=== PATIENT | female | born 1960 | race Caucasian/White ===

== ENCOUNTER 2016-04-07 12:25 | Emergency (ER) | payer OTHER ==
[2016-04-07 12:31] VITALS: BP 152/88
--- NOTE | 2016-04-07 13:08 | PROVIDER DOCUMENTATION ---
HPI-General Adult - General Chief Complaint: Animal Bite Stated Complaint: ANIMAL BITE Time Seen by Provider: 04/07/16 12:46 Source: patient Allergies/Adverse Reactions: Patient Allergies Allergy/AdvReac Type Severity Reaction Status Date / Time No Known Allergies Allergy Verified 04/07/16 12:31 - History of Present Illness -Gen Adult Nature of Presenting Problems: Pt. is 55 yof that presents with a dog bite to the left lower extremity. Pt. reports the dog was a stray that she has never seen before. Pt. reports her tetanus is not up to date and states that she is unsure if she wants the Rabies vaccination or not. Location of Pain/Injury: reports: lower extremity (left). denies: head, face, mouth, neck, chest, upper extremity, hand(s), abdomen, back, pelvis, genitalia, feet, upper body, lower body, generalized Pain Radiation: reports: no radiation Quality of Pain: reports: aching. denies: burning, cramping, dull, fullness, indigestion, pressure, sharp, stabbing, tearing, throbbing, tightness Severity: reports: moderate. denies: mild, severe Onset/Duration: reports: abrupt, just prior to arrival Timing: reports: still present. denies: improving, gone now, resolved prior to arrival, intermittent, constant, changing over time, getting worse Context/Activities at Onset: reports: light activity, recent trauma history. denies: recent emotional stress, recent physical stress, possible bad food, cold exposure, out of country travel Modifying Factors: improves with: nothing Associated Symptoms: denies: anxiety, arm pain, back/neck pain, chest pain, constipation, cough, diaphoresis, diarrhea, dizziness, EENT symptoms, fatigue, fever/chills, genitourinary problems, headaches, heartburn, joint pain, loss of appetite, malaise, muscle aches, sinus congestion/drainage, nausea, rash, seizure, shortness of breath, sensory/motor loss, pain with inspiration, swelling/mass in abdomen, syncope, vomiting, weakness, trouble walking Similar Symptoms Previously?: No Recently seen or treated by another doctor?: No Review of Systems - Adult - REVIEW OF SYSTEMS - ADULT Constitutional: reports: see HPI. denies: chills, fever, fatique Eyes: reports: see HPI. denies: discharge, blurred vision, eye pain Ears, Nose, Mouth & Throat: reports: see HPI. denies: ear discharge, hearing loss, nose pain, loose teeth, mouth/dental pain, throat swelling Cardiovascular: reports: see HPI. denies: chest pain, irregular heart rate, palpitations, syncope Respiratory: reports: see HPI. denies: chronic cough, cough, dyspnea on exertion, pleurisy, shortness of breath, wheezing Gastrointestinal: reports: see HPI. denies: abdominal pain, hematemesis, frequent heartburn, nausea, vomiting Genitourinary: reports: see HPI. denies: dysuria, hematuria, hesitency, urgency Musculoskeletal: reports: see HPI. denies: bone pain, back pain, joint pain, muscle aches, neck pain Integumentary: reports: see HPI, other (several open wounds from a dog bite). denies: hives, itching, rash, skin thickening Neurological: reports: see HPI. denies: ataxia, headache/migraines, numbness, seizure, tremors Psychiatric: reports: see HPI. denies: anxiety, depression, emotional problems , insomnia, panic attacks, suicidal thoughts Past History - Adult - PAST MEDICAL HISTORY-ADULT Review of Records: reports: Old Records Reviewed, Nursing Assessment Review, Medications Reviewed, Social history reviewed & non-contributory. Physical Exam-General - PHYSICAL EXAM-ADULT Initial Vital Signs Reviewed: Yes - CONSTITUTIONAL General Appearance: alert, mild distress. negative: anxious, lethargic, slow to respond, obtunded, combative - EYES Eyes: PERRL/EOMI, pink conjunctivae. negative: conjuctival exudate, photophobia , subconjunctival hemorrhage - HEAD, EARS, NOSE, MOUTH & THROAT HENMT: normocephalic/atraumatic, moist mucous membranes. negative: angioedema, frontal tenderness, maxillary tenderness - NECK Neck: non-tender, full range of motion, supple, normal inspection. negative: lymphadenopathy, trachial deviation, thyromegaly - RESPIRATORY Respiratory: lungs clear, normal breath sounds. negative: crackles, rales, rhonchi, stridor, wheezing - CARDIOVASCULAR Cardiovascular: normal peripheral pulses, regular rate, rhythm, no edema, no JVD , no murmur. negative: extra beats, friction rub, irregularly irregular - CHEST (BREASTS) Chest/Breast: deferred - GASTROINTESTINAL (ABDOMEN) Abdominal Exam: normal bowel sounds, non tender, soft. negative: distended, guarding, rigid, rebound, tenderness, hernia, mass - GENITOURINARY Female Genitalia/Pelvic Exam: deferred Rectal Exam: deferred Hemoccult Exam: deferred - LYMPHATIC Lymphatic: no adenopathy. negative: axilla node tender, cervical node tenderness - MUSCULOSKELETAL Back Exam: normal inspection, no CVA tenderness, no vertebral tenderness. negative: ecchymosis, muscle spasm, vertebral tenderness Extremity: normal range of motion, tenderness (left lower extremity). negative : non-tender, normal inspection, deformity, erythema, inflammation Peripheral Pulses: radial (R): 2+, radial (L): 2+ - SKIN Integumentary: normal color, normal turgor, warm/dry, laceration(s) (There is an anterior and two posterior lacerations to the left lower extremity near the lower calf from a dog bite. There is another small puncture wound near the laceration on the anterior side. The anterior laceration is approx 2.5 cm. The upper posterior laceration is approx 2 cm and the lower posterior laceration is approximately 4 cm.) - NEUROLOGIC Neurologic: grossly normal, no motor/sensory deficits. negative: aphasia, facial droop, focal weakness, motor weakness, sensory deficit - PSYCHIATRIC Psych/Mental Status: normal mood/affect, normal thought content, normal thought process, oriented x 3. negative: anxious, paranoid, tearful Progress - PLAN OF CARE/RESULTS Progress/Plan/Lab Results: Discussed results and plan of care with patient. Patient agrees with plan and verbalizes understanding. Vital Signs Temp Pulse Resp BP Pulse Ox 04/07/16 12:29 97.8 F 113 H 18 152/88 100 No Known Allergies Allergy (Verified 04/07/16 12:31) No Home Medications 04/07/16 Orders Category Date Time Status Laceration Set up DIRECTED Care 04/07/16 13:44 Active Amoxicillin/Pot Clavulanate [Augmentin] Med 04/07/16 13:44 Discontinued 875 mg PO NOW ONE Diph,Pertuss(Acell),Tet Vac/Pf [Boostrix Vaccine] Med 04/07/16 13:43 Discontinued 0.5 ml IM .ONCE ONE Lidocaine 1% Pf [Xylocaine-Mpf 1%] 10 ml Med 04/07/16 13:52 Discontinued .ROUTE As Directed Lidocaine 1% Pf [Xylocaine-Mpf 1%] 10 ml Med 04/07/16 14:20 Discontinued .ROUTE As Directed Lidocaine 1% [Xylocaine 1%] Med 04/07/16 13:44 Discontinued 10 ml INJ NOW ONE Pt. was offered rabies vaccination and patient declined. Procedures - LACERATION/WOUND REPAIR/FB Left Tibia Wound Location: Other: left tibial area Wound Length: 2.5 cm Wound's Depth, Shape: superficial, linear Wound Explored/Foreign Body: clean, no foreign body found Irrigated with Saline?: Yes Prepped with: Betadine Anesthetic: 1%, Lidocaine/Xylocaine Volume of Anesthetic (ml's): 5 Wound Repaired with: Sutures Suture Size/Type: 4.0, Nylon Number of Sutures: 6 Layer Closure?: No Sterile Dressing Applied?: Yes Splint Applied?: No Sling Applied?: No Post Procedure Neurovascular Exam: Intact Left Calf Wound Location: Other: Left calf Wound Length: 2 cm Wound's Depth, Shape: superficial, linear Wound Explored/Foreign Body: clean, no foreign body found Irrigated with Saline?: Yes Prepped with: Betadine Anesthetic: 1%, Lidocaine/Xylocaine Volume of Anesthetic (ml's): 5 Wound Repaired with: Sutures Suture Size/Type: 4.0, Nylon Number of Sutures: 4 Layer Closure?: No Sterile Dressing Applied?: Yes Splint Applied?: No Sling Applied?: No Post Procedure Neurovascular Exam: Intact Calf Wound Location: Other: Left lower calf Wound Length: 4 cm Wound's Depth, Shape: superficial, linear Wound Explored/Foreign Body: clean, no foreign body found Irrigated with Saline?: Yes Prepped with: Betadine Anesthetic: 1%, Lidocaine/Xylocaine Volume of Anesthetic (ml's): 10 Wound Repaired with: Sutures Suture Size/Type: 4.0, Nylon Number of Sutures: 8 Layer Closure?: No Sterile Dressing Applied?: Yes Splint Applied?: No Sling Applied?: No Post Procedure Neurovascular Exam: Intact Departure - Departure Time of Disposition Order: 14:41 DIAGNOSIS: Dog bite of calf Qualifiers: Encounter type: initial encounter Laterality: left Qualified Code(s): S81.852A - Open bite, left lower leg, initial encounter; W54.0XXA - Bitten by dog, initial encounter Disposition: HOME 01 Certified Medical Emergency: Emergent Condition: Stable Additional Instructions: Follow up with primary care physician Take medications as directed Return to ED in 7 to 10 days for suture removal Return to ED for any complaints or worsening of symptoms ED Follow Up Instructions: You have been treated by a care provider in the Emergency Department. These instructions are being provided to you so you can have an understanding of how to care for yourself upon discharge. Upon discharge from the Emergency Department, you are responsible for making arrangements for follow-up care by a physician of your choice. Take all prescribed medications as directed. Return to the Emergency Department immediately for any new or worsening symptoms. You may call the Physician Referral phone number at [phone] to obtain a list of Physicians who are taking new patients. Prescriptions: Cephalexin [Keflex] 500 mg PO BID #14 capsule Tramadol [Ultram] 50 mg PO Q8HR #12 tablet Forms: Return to School/Parent Work Attestation - Physician/ Mid-level Attestation Patient care was provided by Mid-level provider (LOSS PREVENTION MANAGER/PA):: Yes Mid-level provider:: Jerrell Luu Mid-level documentation review:: The Mid-level provider documentation, treatment plan and medical decision making was reviewed by the physician who agrees with all treatment and medical decision making by the MLP. The physician spent face to face time with patient:: Yes
[2016-04-07] MEDS ORDERED: BOOSTRIX VACCINE IM ONE (13:43)
[2016-04-07] MEDS ORDERED: AUGMENTIN PO ONE (13:44)
[2016-04-07] MEDS ORDERED: XYLOCAINE 1% INJ ONE (13:44)
[2016-04-07] MEDS ORDERED: XYLOCAINE-MPF 1% 10 ML ONE ×2 (13:52→14:20)
== END 2016-04-07 14:56 | disposition home or self-care (01) ==
LOC: P.ED 12:25
DX: S81.812A Laceration without foreign body, left lower leg, initial encounter (principal); S81.832A Puncture wound without foreign body, left lower leg, initial encounter; M79.662 Pain in left lower leg; Z23 Encounter for immunization; W54.0XXA Bitten by dog, initial encounter
CPT/HCPCS: 90471; 90715